=== PATIENT | male | born 1935 | race Caucasian/White ===

== ENCOUNTER → 2017-03-25 | Outpatient (CLI) | payer MEDICARE ==
[~2017-03-25] MED LIST: AMLO10TA PO; AMLO10TA2 PO; ASPI81TA85 PO; ATEN100T PO; ATEN25TA PO; ECOT81TA5 PO; KLON0.5T PO; LATU80TA PO; MAG400TA PO; MV-OCAP PO; PRAV40TA2 PO; PROS5TAB PO; TENO1TAB3 PO; ZOLO100T PO
--- NOTE | 2017-03-25 17:11 | REP ---
DUPLEX CAROTID COMPLETE: REASON: Followup carotid artery disease. COMPARISON: 10/07/2016 which showed total occlusion of the right internal carotid artery. Once again, there is marked echogenic material seen in the carotid arteries, essentially unchanged from the prior exam. Note is again made of right internal carotid arterial occlusion. Some of the echogenic material in the carotid arteries cast an acoustic shadow consistent with calcific deposition. RIGHT: CCA systolic: 60.7 cm/s CCA diastolic: 10.65 cm/s ICA systolic: 0 ICA diastolic: 0 ICA CCA ratio: N/A LEFT: CCA systolic: 99.8 cm/s CCA diastolic: 15.2 cm/s ICA systolic: 119.9 cm/s ICA diastolic: 19.2 cm/s ICA CCA ratio: 1.20 Analysis of the spectral wave forms shows left common and internal carotid arterial spectral broadening with complete filling of the spectral window of the left internal carotid artery. Antegrade flow is seen in both vertebral arteries. IMPRESSION: There is significant soft and calcified plaque formation seen in both carotid arteries as described above. There was a known total occlusion of the right internal carotid artery. According to the NASCET consensus criteria there is less than 50% stenosis of the left internal carotid artery. Signed by Abdullahi Wynn DO 03/26/2017 01:49 P
== END ==
LOC: M RAD 12:51
PROVIDERS: ATTEND Surgery Vascular Surgery
DX: I65.23 Occlusion and stenosis of bilateral carotid arteries (principal)

== ENCOUNTER 2017-11-25 11:01 | Day surgery (SDC) | payer MEDICARE ==
[2017-11-25] MEDS ORDERED: MIDAZOLAM INJ 2 MG/2 ML VIAL (J2250) As Ordered (11:05)
[2017-11-25] MEDS: TROPICAMIDE 1% OPHTH SOLN 2ML OD (11:39)
[2017-11-25] MEDS: PHENYLEPHRINE 2.5% OPHTH SOL 2ML OD (11:39)
[2017-11-25] MEDS: OFLOXACIN 0.3 % (OCUFLOX) OPTH SOL 5ML OD (11:39)
[2017-11-25] MEDS: PROPARACAINE 0.5% OPHTH SOL 15ML OD (11:39)
[2017-11-25] MEDS: POVIDONE-IODINE 5% OPHTH PREP SOL 30ML As Ordered (13:08)
[2017-11-25] MEDS: DUOVISC (0.50ML VISCOAT/0.55ML PROVISC) OPHTH KIT As Ordered (13:09)
[2017-11-25] MEDS: LIDOCAINE 0.75%/EPINEPHRINE 0.025% IN BSS 1ML SYR INTRACAMERAL (OR ONLY) As Ordered (13:09)
[2017-11-25] MEDS: ACETYLCHOLINE OPHTH SOLN 1% 2ML (MIOCHOL-E) As Ordered (13:09)
[2017-11-25] MEDS: BALANCED SALT IRRIGATION SOLUTION 500ML BAG (FOR OR EYE MACHINE) As Ordered (13:09)
[2017-11-25] MEDS: CEFUROXIME 1MG/0.1ML INTRACAMERAL INJ As Ordered (13:10)
== END 2017-11-25 14:22 | disposition home or self-care (01) ==
LOC: M SDC 11:01
DX: H25.11 Age-related nuclear cataract, right eye (principal); I10 Essential (primary) hypertension; F32.9 Major depressive disorder, single episode, unspecified; E78.5 Hyperlipidemia, unspecified; R73.01 Impaired fasting glucose; M19.90 Unspecified osteoarthritis, unspecified site; Z79.899 Other long term (current) drug therapy; Z79.82 Long term (current) use of aspirin; Z87.891 Personal history of nicotine dependence; Z88.7 Allergy status to serum and vaccine
CPT/HCPCS: 66984

== ENCOUNTER 2017-12-16 10:32 | Day surgery (SDC) | payer MEDICARE ==
[2017-12-16] MEDS: LIDOCAINE 0.75%/EPINEPHRINE 0.025% IN BSS 1ML SYR INTRACAMERAL (OR ONLY) As Ordered (06:57)
[2017-12-16] MEDS ORDERED: MIDAZOLAM INJ 2 MG/2 ML VIAL (J2250) As Ordered (13:47)
[2017-12-16] MEDS ORDERED: fentaNYL 100 MCG/2 ML INJECTION (J3010) As Ordered (13:47)
[2017-12-16] MEDS: BALANCED SALT IRRIGATION SOLUTION 500ML BAG (FOR OR EYE MACHINE) As Ordered (14:53)
[2017-12-16] MEDS: ACETYLCHOLINE OPHTH SOLN 1% 2ML (MIOCHOL-E) As Ordered (14:53)
[2017-12-16] MEDS: POVIDONE-IODINE 5% OPHTH PREP SOL 30ML As Ordered (14:53)
[2017-12-16] MEDS: DUOVISC (0.50ML VISCOAT/0.55ML PROVISC) OPHTH KIT As Ordered (14:53)
[2017-12-16] MEDS: CEFUROXIME 1MG/0.1ML INTRACAMERAL INJ As Ordered (14:54)
[2017-12-16] MEDS: LIDOCAINE 1% SDV 5 ML VIAL As Ordered (15:07)
== END 2017-12-16 15:10 | disposition home or self-care (01) ==
LOC: M SDC 10:32
DX: H59.022 Cataract (lens) fragments in eye following cataract surgery, left eye (principal); I10 Essential (primary) hypertension; E78.5 Hyperlipidemia, unspecified; R56.9 Unspecified convulsions; F41.9 Anxiety disorder, unspecified; F32.9 Major depressive disorder, single episode, unspecified; Z79.899 Other long term (current) drug therapy
CPT/HCPCS: 66852

== ENCOUNTER → 2018-04-11 | Outpatient (CLI) | payer MEDICARE | LOC: M RAD 12:54 | DX: I65.23 Occlusion and stenosis of bilateral carotid arteries (principal) | CPT/HCPCS: 93880 ==

== ENCOUNTER → 2018-11-11 | Outpatient (REF) | payer MEDICARE ==
[~2018-11-11] MED LIST changes: -AMLO10TA2 PO; +AMLO10TA5 PO; +ATEN50TA2 PO; +CHLO25TA PO; +K-TA10TA2 PO
== END ==
LOC: M SFHCPLAZ 11:36
PROVIDERS: ATTEND Dermatology
DX: L57.0 Actinic keratosis (principal); D23.5 Other benign neoplasm of skin of trunk; L82.1 Other seborrheic keratosis

== ENCOUNTER 2020-04-15 23:35 | Emergency (ER) | payer MEDICARE ==
[~2020-04-15] VITALS: Ht 172.7 cm; Wt 69.1 kg
--- NOTE | 2020-04-16 00:04 | REPVR ---
PROCEDURE INFORMATION: Exam: CT Head Without Contrast Exam date and time: 04/15/2020 11:41 PM Age: 84 years old Clinical indication: Injury or trauma; Fall; Initial encounter; Concussion / head injury; Consciousness not specified; Additional info: Falls TECHNIQUE: Imaging protocol: Computed tomography of the head without contrast. Radiation optimization: All CT scans at this facility use at least one of these dose optimization techniques: automated exposure control; mA and/or kV adjustment per patient size (includes targeted exams where dose is matched to clinical indication); or iterative reconstruction. COMPARISON: CT Head without contrast 2015-07-19 08:09 FINDINGS: Brain: Diffuse moderate cerebral age related volume loss. Moderate patchy low attenuation in the white matter compatible with moderate chronic small vessel ischemic disease. No midline shift, mass, fluid collection, or evidence of hemorrhage. Ventricles: Ventricular enlargement proportional to volume loss. Bones/joints: Unremarkable. No acute fracture. Sinuses: Visualized sinuses are unremarkable. No fluid levels. Mastoid air cells: Visualized mastoid air cells are well aerated. Soft tissues: Unremarkable. Vasculature: Coarse atherosclerotic calcifications in the vertebral and internal carotid arteries. IMPRESSION: Moderate involutional changes, no acute intracranial abnormality. Electronically signed by: Richard Osuna On 04/16/2020 00:04:29 AM
--- NOTE | 2020-04-16 00:05 | REPVR ---
PROCEDURE INFORMATION: Exam: CT Cervical Spine Without Contrast Exam date and time: 04/15/2020 11:41 PM Age: 84 years old Clinical indication: Neck pain; Additional info: Falls TECHNIQUE: Imaging protocol: Computed tomography images of the cervical spine without contrast. Radiation optimization: All CT scans at this facility use at least one of these dose optimization techniques: automated exposure control; mA and/or kV adjustment per patient size (includes targeted exams where dose is matched to clinical indication); or iterative reconstruction. COMPARISON: SR CT Spine,cervical w/o contrast 2015-07-19 08:09 FINDINGS: Vertebrae: Vertebrae are hypodense bones indicating osteopenia. Normal spinal curvature, vertebral body heights, and alignment. No spinal fracture or acute subluxation. Discs/Spinal canal/Neural foramina: Diffuse degenerative disc space loss with degenerative disc osteophyte complexes, facet arthropathy, and ligamentum flavum thickening causes up to moderate spinal and moderate to severe foraminal stenosis greatest at C4-C6. Soft tissues: Unremarkable. Lungs: Lung apices are normal. Vasculature: There is moderate atherosclerotic calcification of the carotid arteries. IMPRESSION: No acute vertebral fracture/subluxation. Electronically signed by: Richard Osuna On 04/16/2020 00:05:25 AM
[2020-04-16 00:21] LABS: BASO % 0.1 % (0.0-1.0); HEMATOCRIT 29.4 % (42.0-52.0); HEMOGLOBIN 10.5 g/dl (13.5-17.5); LYMPH # 0.6 10^3/uL (1.5-5.0); MEAN CORPUSCULAR HEMOGLOBIN 30.6 pg (27.0-33.0); MEAN CORPUSCULAR HGB CONC 35.7 g/dl (32.0-36.5); MEAN CORPUSCULAR VOLUME 85.7 fl (80.0-96.0); MONO # 1.3 10^3/uL (0.0-0.8); MONO % 6.7 % (0.0-5.0); NEUTROPHILS # 17.8 10^3/uL (1.5-8.5); NEUTROPHILS % 89.4 % (36.0-66.0); PLATELET COUNT, AUTOMATED 175 10^3/uL (150-450); RED BLOOD COUNT 3.43 10^6/uL (4.30-6.10); WHITE BLOOD COUNT 19.9 10^3/uL (4.0-10.0)
--- NOTE | 2020-04-16 00:31 | REPVR ---
PROCEDURE INFORMATION: Exam: CT Thoracic Spine Without Contrast Exam date and time: 04/16/2020 12:11 AM Age: 84 years old Clinical indication: Pain in thoracic spine; Without myelpathy or radiculopathy; Patient HX: Fall; Additional info: Trauma TECHNIQUE: Imaging protocol: Computed tomography images of the thoracic spine without contrast. Radiation optimization: All CT scans at this facility use at least one of these dose optimization techniques: automated exposure control; mA and/or kV adjustment per patient size (includes targeted exams where dose is matched to clinical indication); or iterative reconstruction. COMPARISON: No relevant prior studies available. FINDINGS: Vertebrae: Unstable T10 distraction fracture with transverse oriented fracture through the mid and inferior T10 vertebral body and extending towards the pedicles. Vertebrae are hypodense bones indicating osteopenia. Discs/Spinal canal/Neural foramina: Degenerative disc and joint disease with bulky periarticular osteophytes with at most, mild spinal and mild moderate foraminal stenosis. Soft tissues: Associated paraspinous soft tissue thickening at T10. Heart: Cardiomegaly. Spleen: Splenomegaly. IMPRESSION: Unstable T10 distraction fracture with transverse oriented fracture through the mid and inferior T10 vertebral body and extending towards the pedicles. Associated paraspinous soft tissue thickening at T10. Recommend spine surgical consultation. Electronically signed by: Richard Osuna On 04/16/2020 00:30:27 AM
[2020-04-16 00:32] LABS: INR 1.47; PROTHROMBIN TIME 17.6 SECONDS (11.8-14.0)
[2020-04-16 00:33] LABS: PARTIAL THROMBOPLASTIN TIME 35.3 SECONDS (25.0-38.4)
--- NOTE | 2020-04-16 00:35 | REPVR ---
PROCEDURE INFORMATION: Exam: CT Lumbar Spine Without Contrast Exam date and time: 04/16/2020 12:11 AM Age: 84 years old Clinical indication: Low back pain; Patient HX: Fall; Additional info: Trauma TECHNIQUE: Imaging protocol: Computed tomography images of the lumbar spine without contrast. Radiation optimization: All CT scans at this facility use at least one of these dose optimization techniques: automated exposure control; mA and/or kV adjustment per patient size (includes targeted exams where dose is matched to clinical indication); or iterative reconstruction. COMPARISON: No relevant prior studies available. FINDINGS: Vertebrae: Mild levoconvex lumbar curvature. Maintained vertebral body heights without fractures. Discs/Spinal canal/Neural foramina: Moderate to severe degenerative disc space loss. Scattered disc bulges, osteophytes throughout the cervical spine with up to moderate to severe foraminal and spinal stenosis. Vasculature: Extensive arterial calcifications. Soft tissues: Bulky periarticular osteophytes. IMPRESSION: No acute abnormality. Electronically signed by: Richard Osuna On 04/16/2020 00:35:11 AM
[2020-04-16 00:46] LABS: CALCIUM LEVEL 8.6 MG/DL (8.8-10.2); CREATININE FOR GFR 1.58 MG/DL (0.70-1.30); GLOMERULAR FILTRATION RATE 44.8 (>35); POTASSIUM SERUM 3.2 MEQ/L (3.5-5.1)
[2020-04-16] MEDS ORDERED: NS 1,000 ML IV SCH (00:52)
[2020-04-16 00:59] LABS: ALBUMIN 3.6 GM/DL (3.2-5.2); BILIRUBIN,DIRECT 0.7 MG/DL (0.0-0.2); BILIRUBIN,TOTAL 1.8 MG/DL (0.2-1.0); CK-MB VALUE MASS 15.9 NG/ML (<3.6); MB/CK RELATIVE INDEX 1.16 (< OR =4); THYROID STIMULATING HORMONE 1.45 uIU/ML (0.358-3.740); TROPONIN I 0.17 NG/ML (< 0.10)
[2020-04-16] MEDS ORDERED: POTASSIUM CHLORIDE 10 MEQ SR TABLET PO ONE (01:00)
[2020-04-16] MEDS ORDERED: ALLO100T PO (01:16)
[2020-04-16] MEDS ORDERED: ROSU40TA4 PO (01:16)
[2020-04-16] MEDS ORDERED: LATA0.0015 OP (01:16)
[2020-04-16 02:22] VITALS: BP 170/74
--- NOTE | 2020-04-16 07:50 | REP ---
Portable chest x-ray: Single view. History: Trauma. Comparison chest x-ray: July 25, 2015. Findings: Monitoring electrodes overlie the chest. Moderate cardiomegaly is observed. There is mild pleuroparenchymal scarring in the right base and mild interstitial fibrosis is seen in the left base. No definite infiltrate. Pulmonary vasculature is not increased. No significant bony abnormality. Impression: Moderate cardiomegaly. Bibasilar fibrosis. Otherwise no acute disease. Electronically Signed by Jamarcus Salas MD 04/16/2020 07:41 A
--- NOTE | 2020-04-16 08:07 | ECGEPIP ---
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
== END 2020-04-16 02:27 | disposition home or self-care (01) ==
LOC: EDBD 23:35 → M ED 23:36
DX: S22.019A Unspecified fracture of first thoracic vertebra, initial encounter for closed fracture (principal); I48.91 Unspecified atrial fibrillation; E87.1 Hypo-osmolality and hyponatremia; M62.82 Rhabdomyolysis; E87.6 Hypokalemia; I10 Essential (primary) hypertension; E78.49 Other hyperlipidemia; Z87.891 Personal history of nicotine dependence; Z91.81 History of falling; Y92.89 Other specified places as the place of occurrence of the external cause; Y93.9 Activity, unspecified; Y99.9 Unspecified external cause status

== ENCOUNTER → 2020-04-25 | Outpatient (REF) ==
[~2020-04-25] MED LIST changes: +ALLO100T PO; +LATA0.0015 OP; +ROSU40TA4 PO
[2020-04-25 10:56] LABS: BLOOD UREA NITROGEN 17 MG/DL (7-18); CALCIUM LEVEL 8.4 MG/DL (8.8-10.2); CARBON DIOXIDE LEVEL 27 MEQ/L (21-32); CHLORIDE LEVEL 103 MEQ/L (98-107); GLOMERULAR FILTRATION RATE > 60.0 (>35); GLUCOSE, FASTING 88 MG/DL (70-100); POTASSIUM SERUM 3.4 MEQ/L (3.5-5.1); SODIUM LEVEL 138 MEQ/L (136-145)
== END ==
PROVIDERS: ATTEND Internal Medicine
DX: E87.1 Hypo-osmolality and hyponatremia (principal)

== ENCOUNTER → 2020-04-29 | Outpatient (REF) ==
[2020-04-29 10:29] LABS: CALCIUM LEVEL 8.8 MG/DL (8.8-10.2); CREATININE FOR GFR 1.37 MG/DL (0.70-1.30); GLOMERULAR FILTRATION RATE 52.8 (>35); POTASSIUM SERUM 3.9 MEQ/L (3.5-5.1)
== END ==
PROVIDERS: ATTEND Internal Medicine
DX: I51.9 Heart disease, unspecified (principal)

== ENCOUNTER → 2020-05-02 | Outpatient (REF) ==
[2020-05-02 09:27] LABS: HEMATOCRIT 35.9 % (42.0-52.0); HEMOGLOBIN 11.5 g/dl (13.5-17.5); MEAN CORPUSCULAR HEMOGLOBIN 29.9 pg (27.0-33.0); MEAN CORPUSCULAR VOLUME 93.2 fl (80.0-96.0); PLATELET COUNT, AUTOMATED 274 10^3/uL (150-450); RED BLOOD COUNT 3.85 10^6/uL (4.30-6.10); WHITE BLOOD COUNT 6.8 10^3/uL (4.0-10.0)
[2020-05-02 09:52] LABS: CALCIUM LEVEL 8.9 MG/DL (8.8-10.2); CREATININE FOR GFR 1.53 MG/DL (0.70-1.30); GLOMERULAR FILTRATION RATE 46.5 (>35); POTASSIUM SERUM 3.5 MEQ/L (3.5-5.1)
--- NOTE | 2020-05-02 16:20 | REP ---
Three views thoracic spine: 05/02/2020. Indication: T10 fracture. Comparison: 04/16/2020. Findings: The T10 fracture is better visualized on the recent CT evaluation. There has been moderate increased compression of the fracture T10 vertebral body. No new fractures are detected. Diffuse osteopenia and extensive multilevel degenerative sequelae are again noted. Impression: Increase compression of the previously described fracture T10 vertebral body. No retropulsion of fracture fragments into the spinal canal detected. Electronically Signed by Tramaine Aguilera DO 05/02/2020 04:11 P
== END ==
PROVIDERS: ATTEND Internal Medicine
DX: E87.1 Hypo-osmolality and hyponatremia (principal); I10 Essential (primary) hypertension

== ENCOUNTER → 2020-05-06 | Outpatient (REF) ==
[2020-05-06 13:47] LABS: CALCIUM LEVEL 8.9 MG/DL (8.8-10.2); CREATININE FOR GFR 1.65 MG/DL (0.70-1.30); GLOMERULAR FILTRATION RATE 42.6 (>35); POTASSIUM SERUM 4.1 MEQ/L (3.5-5.1)
[2020-05-06 13:54] LABS: HEMATOCRIT 36.5 % (42.0-52.0); HEMOGLOBIN 11.7 g/dl (13.5-17.5); MEAN CORPUSCULAR HEMOGLOBIN 30.5 pg (27.0-33.0); MEAN CORPUSCULAR HGB CONC 32.1 g/dl (32.0-36.5); MEAN CORPUSCULAR VOLUME 95.3 fl (80.0-96.0); PLATELET COUNT, AUTOMATED 301 10^3/uL (150-450); RED BLOOD COUNT 3.83 10^6/uL (4.30-6.10); WHITE BLOOD COUNT 16.1 10^3/uL (4.0-10.0)
== END ==
PROVIDERS: ATTEND Physician Assistant
DX: R41.82 Altered mental status, unspecified (principal)

== ENCOUNTER → 2020-05-06 | Outpatient (REF) ==
[2020-05-06 14:18] LABS: CREATININE FOR GFR 1.59 MG/DL (0.70-1.30); GLOMERULAR FILTRATION RATE 44.5 (>35); POTASSIUM SERUM 3.5 MEQ/L (3.5-5.1)
== END ==
PROVIDERS: ATTEND Physician Assistant
DX: Z79.899 Other long term (current) drug therapy (principal)

== ENCOUNTER → 2020-05-06 | Outpatient (REF) | payer MEDICARE ==
[~2020-05-06] MED LIST changes: -AMLO10TA5 PO; +AMLO1TAB25 PO; -ASPI81TA85 PO; +ASPI81TA86 PO
--- NOTE | 2020-05-06 16:41 | REPPI ---
CHEST X-RAY: AP VIEW. HISTORY: Altered mental status. COMPARISON CHEST X-RAY: April 16, 2020 FINDINGS: Cardiomegaly is again observed, unchanged. No infiltrate is seen. Pleural angles are sharp. Thoracic aorta is calcific. A no acute bony abnormality. IMPRESSION: Cardiomegaly, unchanged. No acute infiltrate seen. Electronically Signed by Jamarcus Salas MD 05/06/2020 06:17 P
[2020-05-06 18:51] LABS: AMORPHOUS SEDIMENT SMALL (NEGATIVE); APPEARANCE, URINE TURBID (CLEAR); BACTERIA, URINE AUTO 2+ (NEGATIVE); BILIRUBIN, URINE AUTO NEGATIVE (NEGATIVE); BLOOD, URINE BLOOD 2+ (NEGATIVE); COLOR, URINE YELLOW (YELLOW); GLUCOSE, URINE (UA) AUTO NEGATIVE (NEGATIVE); KETONE, URINE AUTO NEGATIVE (NEGATIVE); LEUKOCYTE ESTERASE, URINE AUTO 3+ (NEGATIVE); MUCUS, URINE SMALL (NEGATIVE); NITRITE, URINE AUTO NEGATIVE (NEGATIVE); PROTEIN, URINE AUTO 2+ mg/dL (NEGATIVE); RBC, URINE AUTO 71 /HPF (0-3); SPECIFIC GRAVITY URINE AUTO 1.016 (1.002-1.035); SQUAMOUS EPITHELIAL CELL UR AU 0 /HPF (0-6); TRANSITIONAL EPITHELIAL AUTO 4 /HPF; UROBILINOGEN, URINE AUTO 0.2 mg/dL (0.0-2.0); WBC, URINE AUTO TNTC /HPF (0-3)
== END ==
PROVIDERS: ATTEND Internal Medicine
DX: I51.7 Cardiomegaly (principal); R41.82 Altered mental status, unspecified

== ENCOUNTER → 2020-05-07 | Outpatient (REF) ==
[~2020-05-07] MED LIST changes: +AMLO10TA5 PO; -AMLO1TAB25 PO; +ASPI81TA85 PO; -ASPI81TA86 PO
== END ==
PROVIDERS: ATTEND Internal Medicine
DX: N17.9 Acute kidney failure, unspecified (principal)

== ENCOUNTER → 2020-05-07 | Outpatient (REF) ==
[2020-05-07 07:30] LABS: HEMATOCRIT 33.2 % (42.0-52.0); HEMOGLOBIN 10.8 g/dl (13.5-17.5); MEAN CORPUSCULAR HEMOGLOBIN 30.5 pg (27.0-33.0); MEAN CORPUSCULAR HGB CONC 32.5 g/dl (32.0-36.5); MEAN CORPUSCULAR VOLUME 93.8 fl (80.0-96.0); PLATELET COUNT, AUTOMATED 247 10^3/uL (150-450); RED BLOOD COUNT 3.54 10^6/uL (4.30-6.10); WHITE BLOOD COUNT 21.7 10^3/uL (4.0-10.0)
[2020-05-07 07:57] LABS: CALCIUM LEVEL 8.6 MG/DL (8.8-10.2); CREATININE FOR GFR 1.69 MG/DL (0.70-1.30); GLOMERULAR FILTRATION RATE 41.5 (>35); POTASSIUM SERUM 3.5 MEQ/L (3.5-5.1)
== END ==
PROVIDERS: ATTEND Internal Medicine
DX: R41.82 Altered mental status, unspecified (principal)

== ENCOUNTER 2020-05-08 15:35 | Emergency (ER) | payer MEDICARE ==
[~2020-05-08] VITALS: Ht 167.6 cm; Wt 66.4 kg
[~2020-05-08 15:35] MED LIST changes: -AMLO10TA5 PO; +AMLO1TAB25 PO; -ASPI81TA85 PO; +ASPI81TA86 PO
[2020-05-08 18:35] LABS: BASO % 0.1 % (0.0-1.0); EOS % 0.2 % (0.0-3.0); HEMATOCRIT 31.3 % (42.0-52.0); HEMOGLOBIN 10.3 g/dl (13.5-17.5); LYMPH % 10.7 % (24.0-44.0); MEAN CORPUSCULAR HEMOGLOBIN 31.1 pg (27.0-33.0); MEAN CORPUSCULAR HGB CONC 32.9 g/dl (32.0-36.5); MEAN CORPUSCULAR VOLUME 94.6 fl (80.0-96.0); MONO # 0.9 10^3/uL (0.0-0.8); MONO % 4.8 % (0.0-5.0); NEUTROPHILS # 15.3 10^3/uL (1.5-8.5); NEUTROPHILS % 83.7 % (36.0-66.0); PLATELET COUNT, AUTOMATED 241 10^3/uL (150-450); RED BLOOD COUNT 3.31 10^6/uL (4.30-6.10); WHITE BLOOD COUNT 18.2 10^3/uL (4.0-10.0)
[2020-05-08 18:48] LABS: INR 1.5; PROTHROMBIN TIME 17.8 SECONDS (11.8-14.0)
[2020-05-08 18:49] LABS: PARTIAL THROMBOPLASTIN TIME 32.6 SECONDS (25.0-38.4)
[2020-05-08 19:04] LABS: ALBUMIN 2.4 GM/DL (3.2-5.2); BILIRUBIN,DIRECT 0.2 MG/DL (0.0-0.2); BILIRUBIN,TOTAL 0.3 MG/DL (0.2-1.0); C REACTIVE PROTEIN QUANTITATIV 14.4 MG/DL (0.00-0.30); THYROID STIMULATING HORMONE 0.295 uIU/ML (0.358-3.740); TOTAL PROTEIN 6.3 GM/DL (6.4-8.2)
[2020-05-08 19:16] LABS: ERYTHROCYTE SEDIMENTATION RATE 82 mm/hr (0-20)
--- NOTE | 2020-05-08 21:38 | REPVR ---
PROCEDURE INFORMATION: Exam: MR Thoracic Spine Without Contrast Exam date and time: 05/08/2020 5:23 PM Age: 84 years old Clinical indication: Abnormal findings; Abnormal radiologic findings of thoracic; Additional info: T-10 fracture, loss of rectal tone, increased spasticity TECHNIQUE: Imaging protocol: Multiplanar magnetic resonance images of the thoracic spine without intravenous contrast. COMPARISON: CT Spine,thoracic w/o contrast 04/16/2020 12:13 AM FINDINGS: There is a linear fracture oriented in anterior to posterior direction through the T10 vertebral body. There is approximately 50% loss of vertebral body height which is new since the previous thoracic spine CT. There is also a new anterior compression fracture of the T11 vertebral body. Associated bone marrow edema at T9, T10, and T11. There is retropulsion of disc material at T9-10 and possibly the T10 posterior vertebral body wall causing severe central spinal canal stenosis. The central spinal canal measures 6 mm in AP diameter. Associated compression of the thoracic spinal cord with abnormal signal at the T10 level. Signal in the remainder of the cord is normal. No syrinx or mass. Milder discogenic degenerative changes elsewhere in the thoracic spine. Small posterior disc osteophyte complex at C6-C7 causes mild spinal stenosis without cord compression. Similar degenerative changes in the upper lumbar spine. Paraspinal soft tissue edema centered at the T10 level. IMPRESSION: 1. Compression fracture of T10 with loss of vertebral body height and retropulsion of disc material and or bone fragment causing severe spinal stenosis with cord compression and mild cord edema. 2. New anterior compression fracture of T11 Electronically signed by: Rubio Minor On 05/08/2020 21:37:31 PM
--- NOTE | 2020-05-08 21:58 | REPVR ---
PROCEDURE INFORMATION: Exam: MR Lumbar Spine Without Contrast. Exam date and time: 05/08/2020 5:23 PM Age: 84 years old Clinical indication: Abnormal findings; Abnormal xray or scan of thoracolumbar spine; Additional info: T-10 fracture, loss of rectal tone, increased spasticity TECHNIQUE: Imaging protocol: Multiplanar magnetic resonance images of the lumbar spine without intravenous contrast. COMPARISON: CT Spine, lumbar w/o contrast 04/16/2020 12:13 AM FINDINGS: Vertebrae: Normal vertebral body alignment. No compression fracture is seen. There is bone marrow edema in the L1 and L2 vertebrae and multilevel endplate degenerative changes. Advanced facet degenerative changes and degenerative changes in the interspinous ligaments throughout the lumbar spine. Spinal cord: Normal signal. No cord compression. L1-L2: Severe disc degeneration with loss of disc height. Disc space is partially replaced by fluid. Endplate degenerative changes and reactive bone marrow edema. Posterior disc bulge causes lateral recess stenosis on the left. Severe bilateral foraminal stenosis. L2-L3: Severe disc degeneration with loss of disc height and small posterior disc bulge. No disc herniation or spinal stenosis. Advanced facet DJD with severe bilateral foraminal stenosis. L3-L4: Severe disc degeneration with loss of disc height and small posterior disc bulge. Some fluid signal in the intervertebral disc space Mild lateral recess stenosis on the left. No disc herniation or spinal stenosis. Advanced facet DJD with severe bilateral foraminal stenosis. L4-L5: Disc degeneration with loss of disc height. Small annulus tear with midline posterior disc protrusion measuring 9 x 3 mm. Lateral recess stenosis on the left with some mass effect on the L5 nerve root. Advanced facet DJD with severe foraminal stenosis. L5-S1: Severe disc degeneration with loss of disc height. No disc herniation or spinal stenosis. Advanced facet DJD with severe foraminal stenoses. Soft tissues: Unremarkable. IMPRESSION: 1. Advanced degenerative spondylosis as above with severe foraminal stenoses and advanced facet DJD throughout the lumbar spine. 2. Small posterior disc bulges at multiple levels causing lateral recess stenoses on the left. No spinal stenosis. 3. Non-specific fluid signal in the L1-L2 and L3-L4 intervertebral disc spaces. Consider follow-up contrast-enhanced MRI if there is concern for infection. Electronically signed by: Rubio Minor On 05/08/2020 21:57:53 PM
[2020-05-09 01:51] VITALS: BP 153/70
== END 2020-05-09 01:54 | disposition short-term general hospital (02) ==
LOC: M ED 15:35 → EDBD 15:35 → M ED 05-09 01:54
DX: G95.19 Other vascular myelopathies (principal); G95.20 Unspecified cord compression; I10 Essential (primary) hypertension; E78.5 Hyperlipidemia, unspecified; M10.9 Gout, unspecified; Z79.899 Other long term (current) drug therapy; Z79.82 Long term (current) use of aspirin; Z88.7 Allergy status to serum and vaccine

== ENCOUNTER → 2020-05-08 | Outpatient (REF) ==
[2020-05-08 11:55] LABS: HEMOGLOBIN 11.4 g/dl (13.5-17.5); MEAN CORPUSCULAR HEMOGLOBIN 30.6 pg (27.0-33.0); MEAN CORPUSCULAR HGB CONC 31.7 g/dl (32.0-36.5); MEAN CORPUSCULAR VOLUME 96.5 fl (80.0-96.0); PLATELET COUNT, AUTOMATED 326 10^3/uL (150-450); RED BLOOD COUNT 3.73 10^6/uL (4.30-6.10); WHITE BLOOD COUNT 19.4 10^3/uL (4.0-10.0)
[2020-05-08 12:20] LABS: CALCIUM LEVEL 8.2 MG/DL (8.8-10.2); CREATININE FOR GFR 1.81 MG/DL (0.70-1.30); GLOMERULAR FILTRATION RATE 38.3 (>35); POTASSIUM SERUM 3.7 MEQ/L (3.5-5.1)
== END ==
PROVIDERS: ATTEND Internal Medicine
DX: N39.0 Urinary tract infection, site not specified (principal); N17.9 Acute kidney failure, unspecified

== ENCOUNTER → 2020-05-21 | Outpatient (REF) ==
[~2020-05-21] MED LIST changes: +AMLO10TA5 PO; -AMLO1TAB25 PO; +ASPI81TA85 PO; -ASPI81TA86 PO
[2020-05-21 10:40] LABS: HEMATOCRIT 31.3 % (42.0-52.0); HEMOGLOBIN 9.8 g/dl (13.5-17.5); MEAN CORPUSCULAR HEMOGLOBIN 29.9 pg (27.0-33.0); MEAN CORPUSCULAR HGB CONC 31.3 g/dl (32.0-36.5); MEAN CORPUSCULAR VOLUME 95.4 fl (80.0-96.0); PLATELET COUNT, AUTOMATED 204 10^3/uL (150-450); RED BLOOD COUNT 3.28 10^6/uL (4.30-6.10); WHITE BLOOD COUNT 8.4 10^3/uL (4.0-10.0)
[2020-05-21 11:09] LABS: CALCIUM LEVEL 8.8 MG/DL (8.8-10.2); CREATININE FOR GFR 1.51 MG/DL (0.70-1.30); GLOMERULAR FILTRATION RATE 47.2 (>35); POTASSIUM SERUM 4.2 MEQ/L (3.5-5.1)
== END ==
PROVIDERS: ATTEND Internal Medicine
DX: I10 Essential (primary) hypertension (principal)

== ENCOUNTER → 2020-05-28 | Outpatient (REF) ==
[~2020-05-28] MED LIST changes: -AMLO10TA5 PO; +AMLO1TAB25 PO; -ASPI81TA85 PO; +ASPI81TA86 PO
[2020-05-28 12:53] LABS: HEMATOCRIT 32.2 % (42.0-52.0); HEMOGLOBIN 9.8 g/dl (13.5-17.5); MEAN CORPUSCULAR HEMOGLOBIN 29.9 pg (27.0-33.0); MEAN CORPUSCULAR HGB CONC 30.4 g/dl (32.0-36.5); MEAN CORPUSCULAR VOLUME 98.2 fl (80.0-96.0); PLATELET COUNT, AUTOMATED 269 10^3/uL (150-450); RED BLOOD COUNT 3.28 10^6/uL (4.30-6.10); WHITE BLOOD COUNT 7.1 10^3/uL (4.0-10.0)
[2020-05-28 16:37] LABS: CREATININE FOR GFR 1.75 MG/DL (0.70-1.30); GLOMERULAR FILTRATION RATE 39.8 (>35); POTASSIUM SERUM 4.6 MEQ/L (3.5-5.1)
== END ==
PROVIDERS: ATTEND Internal Medicine
DX: Z79.899 Other long term (current) drug therapy (principal)

== ENCOUNTER → 2020-06-03 | Outpatient (REF) ==
[~2020-06-03] MED LIST changes: +AMLO10TA5 PO; -AMLO1TAB25 PO; +ASPI81TA85 PO; -ASPI81TA86 PO
--- NOTE | 2020-06-03 12:06 | REP ---
REASON: Followup postop. COMPARISON: Preop 05/02/2020. Since the last examination, transpedicular screws and internal fixation rods have been placed affecting T8 to L1 with bilateral transpedicular screws at T8, T9, T12 and L1 and internally fixing rods bilaterally and contiguously throughout those levels. Vertebral body height and alignment is unchanged. None of the affixing screws breech any other corresponding endplates or anterior vertebral body cortices. The degree of disc space narrowing is also unchanged. IMPRESSION: Chronic and postoperative changes as described above. Electronically Signed by Abdullahi Wynn DO 06/03/2020 02:27 P
== END ==
PROVIDERS: ATTEND Internal Medicine
DX: Z98.890 Other specified postprocedural states (principal)

== ENCOUNTER → 2020-06-11 | Outpatient (REF) ==
--- NOTE | 2020-06-11 14:21 | REP ---
Clinical: Paresthesia and pain. Technique: AP and lateral views of the left tibia / fibula. Findings: Evidence of prior left knee replacement. Peripheral vascular disease noted. Skeletal structures demonstrate age-related degenerative changes. No acute fracture or dislocation. No subcutaneous emphysema or significant foreign body. Impression: Nonacute findings as above. Electronically Signed by Mohan Pate MD 06/11/2020 02:13 P
--- NOTE | 2020-06-11 14:38 | REP ---
Clinical: Pain. Technique: AP, lateral, bilateral oblique views of the left knee. Findings: Evidence for prior knee replacement. Underlying age-related degenerative changes noted. Peripheral vascular disease identified. No obvious acute fracture or dislocation. Impression: No acute fracture dislocation appreciated. Electronically Signed by Mohan Pate MD 06/11/2020 02:29 P
== END ==
PROVIDERS: ATTEND Internal Medicine
DX: Z96.652 Presence of left artificial knee joint (principal)

== ENCOUNTER → 2020-06-11 | Outpatient (CLI) | payer MEDICARE ==
[~2020-06-11] MED LIST changes: -AMLO10TA5 PO; +AMLO1TAB25 PO; -ASPI81TA85 PO; +ASPI81TA86 PO
== END ==
LOC: M RAD 13:46
PROVIDERS: ATTEND Physician Assistant
DX: M25.562 Pain in left knee (principal); I70.292 Other atherosclerosis of native arteries of extremities, left leg; Z96.652 Presence of left artificial knee joint

== ENCOUNTER → 2020-06-28 | Outpatient (REF) | payer MEDICARE ==
[2020-09-15 06:41] LABS: HEMATOCRIT 28.7 % (42.0-52.0); HEMOGLOBIN 9.1 g/dl (13.5-17.5); MEAN CORPUSCULAR HGB CONC 31.7 g/dl (32.0-36.5); MEAN CORPUSCULAR VOLUME 97.6 fl (80.0-96.0); PLATELET COUNT, AUTOMATED 246 10^3/uL (150-450); RED BLOOD COUNT 2.94 10^6/uL (4.30-6.10); WHITE BLOOD COUNT 7.1 10^3/uL (4.0-10.0)
[2020-09-26 13:53] LABS: ALBUMIN 2.6 GM/DL (3.2-5.2); BILIRUBIN,TOTAL 0.3 MG/DL (0.2-1.0); CALCIUM LEVEL 8.3 MG/DL (8.8-10.2); CREATININE FOR GFR 1.31 MG/DL (0.70-1.30); GLOMERULAR FILTRATION RATE 55.5 (>35); POTASSIUM SERUM 4.2 MEQ/L (3.5-5.1); TOTAL PROTEIN 6.2 GM/DL (6.4-8.2)
== END ==
PROVIDERS: ATTEND Internal Medicine
DX: N18.9 Chronic kidney disease, unspecified (principal)

== ENCOUNTER → 2020-08-07 | Outpatient (REF) ==
[2020-08-07 10:46] LABS: HEMATOCRIT 28.5 % (42.0-52.0); HEMOGLOBIN 9.1 g/dl (13.5-17.5); MEAN CORPUSCULAR HGB CONC 31.9 g/dl (32.0-36.5); MEAN CORPUSCULAR VOLUME 96.9 fl (80.0-96.0); PLATELET COUNT, AUTOMATED 179 10^3/uL (150-450); RED BLOOD COUNT 2.94 10^6/uL (4.30-6.10)
[2020-08-07 11:17] LABS: ALBUMIN 2.8 GM/DL (3.2-5.2); BILIRUBIN,TOTAL 0.4 MG/DL (0.2-1.0); CALCIUM LEVEL 8.8 MG/DL (8.8-10.2); CREATININE FOR GFR 1.33 MG/DL (0.70-1.30); GLOMERULAR FILTRATION RATE 54.7 (>35); POTASSIUM SERUM 4.2 MEQ/L (3.5-5.1); TOTAL PROTEIN 6.5 GM/DL (6.4-8.2)
== END ==
PROVIDERS: ATTEND Internal Medicine
DX: E87.1 Hypo-osmolality and hyponatremia (principal)

== ENCOUNTER → 2020-08-09 | Outpatient (REF) ==
[2020-08-09 11:05] LABS: HEMOGLOBIN 9.5 g/dl (13.5-17.5); MEAN CORPUSCULAR HEMOGLOBIN 31.4 pg (27.0-33.0); MEAN CORPUSCULAR HGB CONC 31.7 g/dl (32.0-36.5); PLATELET COUNT, AUTOMATED 192 10^3/uL (150-450); RED BLOOD COUNT 3.03 10^6/uL (4.30-6.10)
[2020-08-09 11:45] LABS: CALCIUM LEVEL 8.8 MG/DL (8.8-10.2); CREATININE FOR GFR 1.62 MG/DL (0.70-1.30); GLOMERULAR FILTRATION RATE 43.5 (>35); POTASSIUM SERUM 4.1 MEQ/L (3.5-5.1); THYROID STIMULATING HORMONE 0.601 uIU/ML (0.358-3.740)
== END ==
PROVIDERS: ATTEND Internal Medicine
DX: R53.83 Other fatigue (principal)

== ENCOUNTER → 2020-08-12 | Outpatient (CLI) | payer MEDICARE ==
--- NOTE | 2020-08-21 11:51 | REP ---
PELVIC ULTRASOUND HISTORY: Acute renal injury. TECHNIQUE: Real-time sonographic evaluation of the urinary bladder is performed. FINDINGS: Bladder measures 7.6 x 9.2 x 6.2 cm for a total volume of 283 mL. There is a Pitt catheter in place; however, the balloon is not visualized within the bladder lumen and may be inflated within the prostate. Ureteral jets are not visualized with Doppler color evaluation in the urinary bladder. Prostate measures 4.3 x 4.4 x 5.2 cm for a total volume of 51 mL. No intraluminal polyp or calculus is seen. There is no abnormal echogenicity within the bladder lumen. IMPRESSION: Bladder mildly distended with no intraluminal abnormality. The patient has a Pitt catheter, but the balloon of the catheter is not visualized within the bladder lumen and may be inflated within the prostate. MTDD
--- NOTE | 2020-08-21 11:52 | REP ---
HISTORY: Acute renal injury. TECHNIQUE: Real-time sonographic evaluation of the kidneys is performed. FINDINGS: Kidneys are normal in size and echotexture. Right kidney measures 9.2 x 4.4 x 4.0 cm and left kidney 9.0 x 5.0 x 5.5 cm. There is no hydronephrosis bilaterally. Probable cyst is noted of the upper pole of the right kidney 1.5 cm maximally. Probable cyst of the lower pole of the left kidney measures 1.8 cm maximally. IMPRESSION: Probable cyst of each kidney as discussed above. No hydronephrosis or perinephric fluid. MTDD
== END ==
LOC: M RAD 09:33
PROVIDERS: ATTEND Physician Assistant
DX: R53.83 Other fatigue (principal)

== ENCOUNTER → 2020-08-12 | Outpatient (REF) ==
[2020-08-12 10:12] LABS: HEMATOCRIT 29.9 % (42.0-52.0); HEMOGLOBIN 9.3 g/dl (13.5-17.5); MEAN CORPUSCULAR HEMOGLOBIN 30.9 pg (27.0-33.0); MEAN CORPUSCULAR HGB CONC 31.1 g/dl (32.0-36.5); MEAN CORPUSCULAR VOLUME 99.3 fl (80.0-96.0); PLATELET COUNT, AUTOMATED 196 10^3/uL (150-450); RED BLOOD COUNT 3.01 10^6/uL (4.30-6.10); WHITE BLOOD COUNT 6.6 10^3/uL (4.0-10.0)
[2020-08-12 10:38] LABS: CALCIUM LEVEL 8.7 MG/DL (8.8-10.2); CREATININE FOR GFR 1.56 MG/DL (0.70-1.30); GLOMERULAR FILTRATION RATE 45.5 (>35); POTASSIUM SERUM 4.4 MEQ/L (3.5-5.1)
== END ==
PROVIDERS: ATTEND Internal Medicine
DX: E87.1 Hypo-osmolality and hyponatremia (principal)

== ENCOUNTER → 2020-08-14 | Outpatient (REF) | payer MEDICARE ==
[2020-08-14 12:27] LABS: CALCIUM LEVEL 9.1 MG/DL (8.8-10.2); CREATININE FOR GFR 1.36 MG/DL (0.70-1.30); GLOMERULAR FILTRATION RATE 53.3 (>35); POTASSIUM SERUM 4.3 MEQ/L (3.5-5.1)
== END ==
PROVIDERS: ATTEND Internal Medicine
DX: N18.9 Chronic kidney disease, unspecified (principal)

== ENCOUNTER → 2020-08-16 | Outpatient (REF) ==
[2020-08-16 13:11] LABS: HEMOGLOBIN 8.8 g/dl (13.5-17.5); MEAN CORPUSCULAR HGB CONC 31.4 g/dl (32.0-36.5); MEAN CORPUSCULAR VOLUME 98.6 fl (80.0-96.0); PLATELET COUNT, AUTOMATED 198 10^3/uL (150-450); RED BLOOD COUNT 2.84 10^6/uL (4.30-6.10); WHITE BLOOD COUNT 5.5 10^3/uL (4.0-10.0)
[2020-08-16 13:30] LABS: CALCIUM LEVEL 8.6 MG/DL (8.8-10.2); CREATININE FOR GFR 1.43 MG/DL (0.70-1.30); GLOMERULAR FILTRATION RATE 50.3 (>35); POTASSIUM SERUM 4.4 MEQ/L (3.5-5.1)
== END ==
PROVIDERS: ATTEND Internal Medicine
DX: N18.9 Chronic kidney disease, unspecified (principal)

== ENCOUNTER → 2020-08-28 | Outpatient (REF) ==
[2020-08-28 11:12] LABS: HEMATOCRIT 31.3 % (42.0-52.0); HEMOGLOBIN 9.7 g/dl (13.5-17.5); MEAN CORPUSCULAR HEMOGLOBIN 30.6 pg (27.0-33.0); MEAN CORPUSCULAR VOLUME 98.7 fl (80.0-96.0); PLATELET COUNT, AUTOMATED 191 10^3/uL (150-450); RED BLOOD COUNT 3.17 10^6/uL (4.30-6.10); WHITE BLOOD COUNT 5.9 10^3/uL (4.0-10.0)
== END ==
PROVIDERS: ATTEND Internal Medicine
DX: N18.9 Chronic kidney disease, unspecified (principal)

== ENCOUNTER → 2020-09-11 | Outpatient (REF) | payer MEDICARE ==
[2020-09-11 10:01] LABS: HEMATOCRIT 30.1 % (42.0-52.0); HEMOGLOBIN 9.4 g/dl (13.5-17.5); MEAN CORPUSCULAR HEMOGLOBIN 30.9 pg (27.0-33.0); MEAN CORPUSCULAR HGB CONC 31.2 g/dl (32.0-36.5); PLATELET COUNT, AUTOMATED 164 10^3/uL (150-450); RED BLOOD COUNT 3.04 10^6/uL (4.30-6.10); WHITE BLOOD COUNT 5.8 10^3/uL (4.0-10.0)
[2020-09-11 10:24] LABS: CALCIUM LEVEL 8.8 MG/DL (8.8-10.2); CREATININE FOR GFR 1.35 MG/DL (0.70-1.30); GLOMERULAR FILTRATION RATE 53.7 (>35); POTASSIUM SERUM 4.3 MEQ/L (3.5-5.1)
== END ==
PROVIDERS: ATTEND Internal Medicine
DX: I10 Essential (primary) hypertension (principal)

== ENCOUNTER → 2020-09-17 | Outpatient (CLI) | payer MEDICARE | LOC: M RAD 12:27 | PROVIDERS: ATTEND Internal Medicine | DX: M51.36 Other intervertebral disc degeneration, lumbar region (principal); Z98.1 Arthrodesis status ==

== ENCOUNTER → 2020-09-17 | Outpatient (REF) ==
--- NOTE | 2020-09-17 15:09 | REP ---
INDICATION: THORATIC SURGERY. COMPARISON: Comparison thoracic spine radiographs June 03, 2020.. TECHNIQUE: Three views. FINDINGS: Renteria rods are seen transfixed by bilateral transpedicle screws at T8, T9, T12, and L1. These are unchanged in position and appearance. 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 There is degenerative disc disease at T6-7 with anterior osteophyte formation as well as at T4-5. Thoracic vertebral body heights are preserved. No paravertebral soft tissue mass is seen. There is advanced degenerative disc disease at L1. Prominent spurring is seen at the L1-2 level. Swimmer's lateral view shows degenerative spondylosis change in the lower cervical spine. No bony destructive lesion is seen. The thoracic aorta is calcific. IMPRESSION: Posterior element fusion T8 through L1 with bilateral dorsal rods. Degenerative disc changes as noted above most pronounced at L1-L2. No acute bony abnormality. <Electronically signed by Rickey Salas > 09/17/20 [id number]
--- NOTE | 2020-09-17 16:50 | REP ---
INDICATION: THORACIC SURGERY. COMPARISON: No comparison radiographs. Comparison CT study lumbar spine April 16, 2020.. TECHNIQUE: Six views. FINDINGS: Transpedicle screws are noted bilaterally with interconnecting rods from above at the T12 and L1 levels. There is advanced degenerative disc disease with large anterior and bilateral spurs at L1-L2. There is diffuse degenerative disc disease throughout the remainder of the lumbar disc levels with space narrowing and anterior and posterior osteophyte formation. Lumbar vertebral body heights are preserved. Alignment is normal. There is vascular calcification extensively and a nonaneurysmal abdominal aorta. No bony destructive lesion is seen. Sacrum and SI joints appear intact. Psoas margins are symmetric. IMPRESSION: Advanced diffuse degenerative disc disease most pronounced below the fusion rods at the L1-2 level. No acute bony abnormality. <Electronically signed by Rickey Salas > 09/17/20 [id number]
== END ==
PROVIDERS: ATTEND Internal Medicine
DX: M51.36 Other intervertebral disc degeneration, lumbar region (principal); Z98.1 Arthrodesis status

== ENCOUNTER → 2020-10-03 | Outpatient (REF) | PROVIDERS: ATTEND Internal Medicine | DX: Z20.828 Contact with and (suspected) exposure to other viral communicable diseases (principal) ==

== ENCOUNTER → 2020-10-08 | Outpatient (REF) | payer MEDICARE ==
[2020-10-08 12:04] LABS: HEMOGLOBIN 9.4 g/dl (13.5-17.5); MEAN CORPUSCULAR HEMOGLOBIN 30.9 pg (27.0-33.0); MEAN CORPUSCULAR HGB CONC 31.3 g/dl (32.0-36.5); MEAN CORPUSCULAR VOLUME 98.7 fl (80.0-96.0); PLATELET COUNT, AUTOMATED 126 10^3/uL (150-450); RED BLOOD COUNT 3.04 10^6/uL (4.30-6.10); WHITE BLOOD COUNT 5.6 10^3/uL (4.0-10.0)
[2020-10-08 12:48] LABS: CALCIUM LEVEL 8.8 MG/DL (8.8-10.2); CREATININE FOR GFR 1.47 MG/DL (0.70-1.30); GLOMERULAR FILTRATION RATE 48.6 (>35); POTASSIUM SERUM 4.2 MEQ/L (3.5-5.1)
== END ==
PROVIDERS: ATTEND Internal Medicine
DX: N18.9 Chronic kidney disease, unspecified (principal)

== ENCOUNTER → 2020-10-10 | Outpatient (REF) | payer MEDICARE ==
[~2020-10-10] MED LIST changes: -MAG400TA PO; +MAGN400T35 PO
== END ==
LOC: EDSTATUS 11-19 13:42
PROVIDERS: ATTEND Internal Medicine
DX: Z20.828 Contact with and (suspected) exposure to other viral communicable diseases (principal)

== ENCOUNTER → 2020-10-14 | Outpatient (CLI) | payer MEDICARE ==
[~2020-10-14] MED LIST changes: +MAG400TA PO; -MAGN400T35 PO
--- NOTE | 2020-10-14 10:47 | REP ---
INDICATION: DECLAN CAROTID STENOSIS COMPARISON: 05/03/2019. TECHNIQUE: Real-time ultrasound evaluation and duplex Doppler interrogation of the extracranial carotid vasculature is performed. FINDINGS: Once again there is occlusion of the right internal carotid artery. Moderate plaquing is noted in the left carotid bulb extending into the internal and external carotid arteries. There is elevated peak systolic velocity in left internal carotid artery compatible with stenosis 60-79%. The vertebral arteries demonstrate normal direction of flow. RIGHT LEFT Peak systolic velocity ICA occluded cm/s 199.0 cm/s End diastolic velocity ICA occluded cm/s 24.7 cm/s Peak systolic velocity CCA 73.5 cm/s 4105.5cm/s Peak systolic velocity ECA 173.2 cm/s 225.2 cm/s ICA/CCA ratio - 1.9 IMPRESSION: Occlusion right internal carotid artery. Elevated peak systolic velocity left internal carotid artery compatible with stenosis 60-79%. <Electronically signed by Jevon Figueroa > 10/14/20 [id number]
== END ==
LOC: M RAD 09:21
PROVIDERS: ATTEND Surgery Vascular Surgery
DX: I65.23 Occlusion and stenosis of bilateral carotid arteries (principal)

== ENCOUNTER → 2020-10-16 | Outpatient (REF) | payer MEDICARE ==
[~2020-10-16] MED LIST changes: -MAG400TA PO; +MAGN400T35 PO
== END ==
PROVIDERS: ATTEND Internal Medicine
DX: Z20.828 Contact with and (suspected) exposure to other viral communicable diseases (principal)

== ENCOUNTER → 2020-11-03 | Outpatient (REF) | payer MEDICARE ==
[~2020-11-03] MED LIST changes: +MAG400TA PO; -MAGN400T35 PO
== END ==
PROVIDERS: ATTEND Internal Medicine
DX: Z20.828 Contact with and (suspected) exposure to other viral communicable diseases (principal)

== ENCOUNTER → 2020-11-03 | Outpatient (REF) | payer MEDICARE | PROVIDERS: ATTEND Internal Medicine | DX: Z20.828 Contact with and (suspected) exposure to other viral communicable diseases (principal) ==

== ENCOUNTER → 2020-11-05 | Outpatient (REF) | payer MEDICARE ==
[2020-11-05 11:26] LABS: HEMATOCRIT 32.5 % (42.0-52.0); HEMOGLOBIN 10.2 g/dl (13.5-17.5); MEAN CORPUSCULAR HEMOGLOBIN 30.6 pg (27.0-33.0); MEAN CORPUSCULAR HGB CONC 31.4 g/dl (32.0-36.5); MEAN CORPUSCULAR VOLUME 97.6 fl (80.0-96.0); PLATELET COUNT, AUTOMATED 152 10^3/uL (150-450); RED BLOOD COUNT 3.33 10^6/uL (4.30-6.10); WHITE BLOOD COUNT 5.6 10^3/uL (4.0-10.0)
[2020-11-05 11:47] LABS: CALCIUM LEVEL 9.2 MG/DL (8.8-10.2); CREATININE FOR GFR 1.82 MG/DL (0.70-1.30)
== END ==
PROVIDERS: ATTEND Internal Medicine
DX: Z79.899 Other long term (current) drug therapy (principal)

== ENCOUNTER 2020-11-06 16:52 | Emergency (ER) | payer MEDICARE ==
[~2020-11-06] VITALS: Ht 167.6 cm; Wt 67.7 kg
[2020-11-06] MEDS ORDERED: ACETAMINOPHEN 500 MG TAB PO ONE (17:30)
--- NOTE | 2020-11-06 17:56 | REPVR ---
PROCEDURE INFORMATION: Exam: CT Cervical Spine Without Contrast Exam date and time: 11/06/2020 5:31 PM Age: 85 years old Clinical indication: Injury or trauma; Fall; Blunt trauma; Additional info: Fall, head lac TECHNIQUE: Imaging protocol: Computed tomography images of the cervical spine without contrast. Radiation optimization: All CT scans at this facility use at least one of these dose optimization techniques: automated exposure control; mA and/or kV adjustment per patient size (includes targeted exams where dose is matched to clinical indication); or iterative reconstruction. COMPARISON: CT Spine,cervical w/o contrast 04/15/2020 11:50 PM FINDINGS: Bones/joints: No acute fracture. Normal alignment. Discs/Spinal canal/Neural foramina: Severe degenerative changes of the cervical spine are present. There is no severe spinal canal stenosis. Multilevel neural foraminal narrowing from uncinate spurring and facet arthropathy is noted. Lungs: Lung apices are normal. Vasculature: Extensive vascular calcifications are present. Soft tissues: Unremarkable. IMPRESSION: 1. No acute abnormality. 2. Chronic findings as discussed above. Electronically signed by: Marek Diaz On 11/06/2020 17:55:31 PM
--- NOTE | 2020-11-06 17:57 | REPVR ---
PROCEDURE INFORMATION: Exam: CT Head Without Contrast Exam date and time: 11/06/2020 5:31 PM Age: 85 years old Clinical indication: Injury or trauma; Fall; Blunt trauma (contusions or hematomas); Additional info: Fall, head lac TECHNIQUE: Imaging protocol: Computed tomography of the head without contrast. Radiation optimization: All CT scans at this facility use at least one of these dose optimization techniques: automated exposure control; mA and/or kV adjustment per patient size (includes targeted exams where dose is matched to clinical indication); or iterative reconstruction. COMPARISON: CT Head without contrast 04/15/2020 11:50 PM FINDINGS: Brain: There is no acute intracranial hemorrhage, cerebral edema, or midline shift. Chronic microvascular ischemic changes are seen in the periventricular white matter. Age-related cerebral and cerebellar volume loss is present. Cerebral ventricles: Mild ex vacuo dilation of the lateral and third ventricles is noted. Bones/joints: No acute fracture. Paranasal sinuses: There is no acute sinusitis. Mastoid air cells: The mastoid air cells are clear. Orbital cavity: The included orbital structures are unremarkable. Vasculature: Atherosclerotic calcifications are seen involving the cavernous carotid arteries. Soft tissues: A left frontal scalp laceration appears to be present. IMPRESSION: 1. No acute intracranial abnormality. 2. Atrophy and chronic deep white matter ischemic changes. Electronically signed by: Marek Diaz On 11/06/2020 17:57:16 PM
[2020-11-06 19:11] VITALS: BP 143/65
== END 2020-11-06 19:14 | disposition home or self-care (01) ==
LOC: EDBD 16:52 → M ED 16:52
DX: S01.01XA Laceration without foreign body of scalp, initial encounter (principal); W18.39XA Other fall on same level, initial encounter; Y92.018 Other place in single-family (private) house as the place of occurrence of the external cause; I10 Essential (primary) hypertension; E78.5 Hyperlipidemia, unspecified; R56.9 Unspecified convulsions; Z79.899 Other long term (current) drug therapy; Z79.82 Long term (current) use of aspirin; Z88.7 Allergy status to serum and vaccine

== ENCOUNTER → 2020-11-07 | Outpatient (REF) | payer MEDICARE ==
[~2020-11-07] MED LIST changes: -MAG400TA PO; +MAGN400T35 PO
== END ==
PROVIDERS: ATTEND Internal Medicine
DX: Z20.828 Contact with and (suspected) exposure to other viral communicable diseases (principal)

== ENCOUNTER → 2020-11-13 | Outpatient (REF) | payer MEDICARE | PROVIDERS: ATTEND Internal Medicine | DX: Z20.828 Contact with and (suspected) exposure to other viral communicable diseases (principal) ==

== ENCOUNTER → 2020-11-19 | Outpatient (REF) | payer MEDICARE | PROVIDERS: ATTEND Internal Medicine | DX: Z20.828 Contact with and (suspected) exposure to other viral communicable diseases (principal) ==

== ENCOUNTER → 2020-11-25 | Outpatient (REF) | payer MEDICARE | PROVIDERS: ATTEND Internal Medicine | DX: Z20.828 Contact with and (suspected) exposure to other viral communicable diseases (principal) ==

== ENCOUNTER → 2020-11-29 | Outpatient (REF) | payer MEDICARE | PROVIDERS: ATTEND Internal Medicine | DX: Z20.828 Contact with and (suspected) exposure to other viral communicable diseases (principal) ==

== ENCOUNTER → 2020-12-04 | Outpatient (REF) | payer MEDICARE | PROVIDERS: ATTEND Internal Medicine | DX: Z20.828 Contact with and (suspected) exposure to other viral communicable diseases (principal) ==

== ENCOUNTER → 2020-12-09 | Outpatient (REF) | payer MEDICARE ==
[2020-12-09 12:06] LABS: HEMATOCRIT 32.2 % (42.0-52.0); HEMOGLOBIN 10.4 g/dl (13.5-17.5); MEAN CORPUSCULAR HEMOGLOBIN 31.7 pg (27.0-33.0); MEAN CORPUSCULAR HGB CONC 32.3 g/dl (32.0-36.5); MEAN CORPUSCULAR VOLUME 98.2 fl (80.0-96.0); PLATELET COUNT, AUTOMATED 142 10^3/uL (150-450); RED BLOOD COUNT 3.28 10^6/uL (4.30-6.10); WHITE BLOOD COUNT 6.1 10^3/uL (4.0-10.0)
[2020-12-09 13:10] LABS: CALCIUM LEVEL 9.8 MG/DL (8.8-10.2); CREATININE FOR GFR 1.56 MG/DL (0.70-1.30); GLOMERULAR FILTRATION RATE 45.4 (>35)
== END ==
PROVIDERS: ATTEND Physician Assistant
DX: N18.9 Chronic kidney disease, unspecified (principal)

== ENCOUNTER → 2020-12-11 | Outpatient (REF) | payer MEDICARE | PROVIDERS: ATTEND Internal Medicine | DX: Z11.52 Encounter for screening for COVID-19 (principal) ==

== ENCOUNTER → 2020-12-18 | Outpatient (REF) | payer MEDICARE ==
[~2020-12-18] MED LIST changes: +MAG400TA PO; -MAGN400T35 PO
== END ==
PROVIDERS: ATTEND Internal Medicine
DX: Z20.822 Contact with and (suspected) exposure to COVID-19 (principal)

== ENCOUNTER → 2020-12-25 | Outpatient (REF) | payer MEDICARE ==
[~2020-12-25] MED LIST changes: -MAG400TA PO; +MAGN400T35 PO
== END ==
PROVIDERS: ATTEND Internal Medicine
DX: Z20.822 Contact with and (suspected) exposure to COVID-19 (principal)

== ENCOUNTER → 2021-01-01 | Outpatient (REF) | payer MEDICARE ==
[2021-01-01 13:47] LABS: HEMATOCRIT 36.5 % (42.0-52.0); HEMOGLOBIN 11.2 g/dl (13.5-17.5); MEAN CORPUSCULAR HGB CONC 30.7 g/dl (32.0-36.5); MEAN CORPUSCULAR VOLUME 101.1 fl (80.0-96.0); PLATELET COUNT, AUTOMATED 143 10^3/uL (150-450); RED BLOOD COUNT 3.61 10^6/uL (4.30-6.10); WHITE BLOOD COUNT 5.4 10^3/uL (4.0-10.0)
[2021-01-01 14:13] LABS: CREATININE FOR GFR 1.7 MG/DL (0.70-1.30); GLOMERULAR FILTRATION RATE 41.1 (>35); POTASSIUM SERUM 4.5 MEQ/L (3.5-5.1)
== END ==
PROVIDERS: ATTEND Internal Medicine
DX: E86.0 Dehydration (principal); Z20.822 Contact with and (suspected) exposure to COVID-19
CPT/HCPCS: 80048; 85027; U0003

== ENCOUNTER → 2021-01-07 | Outpatient (REF) | payer MEDICARE ==
[2021-01-07 11:27] LABS: HEMOGLOBIN 10.5 g/dl (13.5-17.5); MEAN CORPUSCULAR HEMOGLOBIN 31.3 pg (27.0-33.0); MEAN CORPUSCULAR HGB CONC 31.8 g/dl (32.0-36.5); MEAN CORPUSCULAR VOLUME 98.5 fl (80.0-96.0); PLATELET COUNT, AUTOMATED 140 10^3/uL (150-450); RED BLOOD COUNT 3.35 10^6/uL (4.30-6.10); WHITE BLOOD COUNT 6.5 10^3/uL (4.0-10.0)
[2021-01-07 12:01] LABS: CALCIUM LEVEL 9.3 MG/DL (8.8-10.2); CREATININE FOR GFR 1.77 MG/DL (0.70-1.30); GLOMERULAR FILTRATION RATE 39.2 (>35); POTASSIUM SERUM 4.3 MEQ/L (3.5-5.1)
== END ==
PROVIDERS: ATTEND Internal Medicine
DX: K92.2 Gastrointestinal hemorrhage, unspecified (principal)

== ENCOUNTER → 2021-01-08 | Outpatient (REF) | payer MEDICARE | PROVIDERS: ATTEND Internal Medicine | DX: Z20.822 Contact with and (suspected) exposure to COVID-19 (principal) ==

== ENCOUNTER → 2021-01-09 | Outpatient (REF) | payer MEDICARE | PROVIDERS: ATTEND Internal Medicine | DX: R11.10 Vomiting, unspecified (principal) ==

== ENCOUNTER → 2021-01-09 | Outpatient (REF) | payer MEDICARE ==
[2021-01-09 15:48] LABS: HEMATOCRIT 34.3 % (42.0-52.0); HEMOGLOBIN 10.9 g/dl (13.5-17.5); MEAN CORPUSCULAR HEMOGLOBIN 31.1 pg (27.0-33.0); MEAN CORPUSCULAR HGB CONC 31.8 g/dl (32.0-36.5); MEAN CORPUSCULAR VOLUME 97.7 fl (80.0-96.0); PLATELET COUNT, AUTOMATED 133 10^3/uL (150-450); RED BLOOD COUNT 3.51 10^6/uL (4.30-6.10); WHITE BLOOD COUNT 5.5 10^3/uL (4.0-10.0)
[2021-01-09 16:09] LABS: CALCIUM LEVEL 9.3 MG/DL (8.8-10.2); CREATININE FOR GFR 1.7 MG/DL (0.70-1.30); GLOMERULAR FILTRATION RATE 41.1 (>35); POTASSIUM SERUM 4.5 MEQ/L (3.5-5.1)
== END ==
PROVIDERS: ATTEND Internal Medicine
DX: R11.10 Vomiting, unspecified (principal)

== ENCOUNTER → 2021-01-10 | Outpatient (REF) | payer MEDICARE ==
[2021-01-10 09:06] LABS: HEMATOCRIT 34.4 % (42.0-52.0); HEMOGLOBIN 10.9 g/dl (13.5-17.5); MEAN CORPUSCULAR HEMOGLOBIN 31.3 pg (27.0-33.0); MEAN CORPUSCULAR HGB CONC 31.7 g/dl (32.0-36.5); MEAN CORPUSCULAR VOLUME 98.9 fl (80.0-96.0); PLATELET COUNT, AUTOMATED 143 10^3/uL (150-450); RED BLOOD COUNT 3.48 10^6/uL (4.30-6.10); WHITE BLOOD COUNT 6.8 10^3/uL (4.0-10.0)
[2021-01-10 09:30] LABS: CALCIUM LEVEL 9.1 MG/DL (8.8-10.2); CREATININE FOR GFR 1.72 MG/DL (0.70-1.30); GLOMERULAR FILTRATION RATE 40.5 (>35); POTASSIUM SERUM 4.2 MEQ/L (3.5-5.1)
== END ==
PROVIDERS: ATTEND Internal Medicine
DX: R11.10 Vomiting, unspecified (principal)

== ENCOUNTER → 2021-01-12 | Outpatient (REF) | payer MEDICARE ==
[2021-01-12 22:48] LABS: INFLUENZA A AMPLIFICATION NEGATIVE (NEGATIVE); INFLUENZA B AMPLIFICATION NEGATIVE (NEGATIVE)
== END ==
PROVIDERS: ATTEND Internal Medicine
DX: R11.10 Vomiting, unspecified (principal)

== ENCOUNTER → 2021-01-13 | Outpatient (REF) | payer MEDICARE ==
[2021-01-13 11:59] LABS: HEMATOCRIT 33.9 % (42.0-52.0); HEMOGLOBIN 10.8 g/dl (13.5-17.5); MEAN CORPUSCULAR HEMOGLOBIN 31.3 pg (27.0-33.0); MEAN CORPUSCULAR HGB CONC 31.9 g/dl (32.0-36.5); MEAN CORPUSCULAR VOLUME 98.3 fl (80.0-96.0); PLATELET COUNT, AUTOMATED 144 10^3/uL (150-450); RED BLOOD COUNT 3.45 10^6/uL (4.30-6.10); WHITE BLOOD COUNT 6.2 10^3/uL (4.0-10.0)
[2021-01-13 12:34] LABS: CALCIUM LEVEL 9.2 MG/DL (8.8-10.2); CREATININE FOR GFR 1.48 MG/DL (0.70-1.30); GLOMERULAR FILTRATION RATE 48.2 (>35); POTASSIUM SERUM 4.8 MEQ/L (3.5-5.1)
== END ==
PROVIDERS: ATTEND Internal Medicine
DX: R11.10 Vomiting, unspecified (principal)

== ENCOUNTER → 2021-01-15 | Outpatient (REF) | payer MEDICARE | PROVIDERS: ATTEND Internal Medicine | DX: Z20.822 Contact with and (suspected) exposure to COVID-19 (principal) ==

== ENCOUNTER → 2021-01-22 | Outpatient (REF) | payer MEDICARE | PROVIDERS: ATTEND Internal Medicine | DX: Z20.822 Contact with and (suspected) exposure to COVID-19 (principal) ==

== ENCOUNTER → 2021-01-29 | Outpatient (REF) | payer MEDICARE | PROVIDERS: ATTEND Internal Medicine | DX: Z11.52 Encounter for screening for COVID-19 (principal) ==

== ENCOUNTER → 2021-02-04 | Outpatient (REF) | payer MEDICARE ==
[2021-02-04 10:18] LABS: HEMATOCRIT 32.6 % (42.0-52.0); HEMOGLOBIN 10.7 g/dl (13.5-17.5); MEAN CORPUSCULAR HEMOGLOBIN 32.2 pg (27.0-33.0); MEAN CORPUSCULAR HGB CONC 32.8 g/dl (32.0-36.5); MEAN CORPUSCULAR VOLUME 98.2 fl (80.0-96.0); PLATELET COUNT, AUTOMATED 126 10^3/uL (150-450); RED BLOOD COUNT 3.32 10^6/uL (4.30-6.10); WHITE BLOOD COUNT 6.3 10^3/uL (4.0-10.0)
[2021-02-04 10:36] LABS: CALCIUM LEVEL 9.2 MG/DL (8.8-10.2); CREATININE FOR GFR 1.6 MG/DL (0.70-1.30); GLOMERULAR FILTRATION RATE 44.1 (>35)
== END ==
PROVIDERS: ATTEND Internal Medicine
DX: Z01.89 Encounter for other specified special examinations (principal)

== ENCOUNTER → 2021-02-21 | Outpatient (REF) | payer MEDICARE ==
[2021-02-21 20:15] LABS: INFLUENZA A AMPLIFICATION NEGATIVE (NEGATIVE); INFLUENZA B AMPLIFICATION NEGATIVE (NEGATIVE)
== END ==
PROVIDERS: ATTEND Internal Medicine
DX: Z11.59 Encounter for screening for other viral diseases (principal)

== ENCOUNTER → 2021-03-04 | Outpatient (REF) | payer MEDICARE | PROVIDERS: ATTEND Internal Medicine | DX: Z20.822 Contact with and (suspected) exposure to COVID-19 (principal) ==

== ENCOUNTER → 2021-03-11 | Outpatient (REF) | payer MEDICARE ==
[2021-03-11 11:56] LABS: HEMATOCRIT 33.5 % (42.0-52.0); MEAN CORPUSCULAR HEMOGLOBIN 32.3 pg (27.0-33.0); MEAN CORPUSCULAR HGB CONC 32.8 g/dl (32.0-36.5); MEAN CORPUSCULAR VOLUME 98.2 fl (80.0-96.0); PLATELET COUNT, AUTOMATED 124 10^3/uL (150-450); RED BLOOD COUNT 3.41 10^6/uL (4.30-6.10); WHITE BLOOD COUNT 5.6 10^3/uL (4.0-10.0)
[2021-03-11 12:21] LABS: CALCIUM LEVEL 8.9 MG/DL (8.8-10.2); CREATININE FOR GFR 1.54 MG/DL (0.70-1.30); POTASSIUM SERUM 4.5 MEQ/L (3.5-5.1)
== END ==
PROVIDERS: ATTEND Internal Medicine
DX: N18.9 Chronic kidney disease, unspecified (principal); Z20.822 Contact with and (suspected) exposure to COVID-19
CPT/HCPCS: 36415; 80048; 85027; U0003

== ENCOUNTER → 2021-04-09 | Outpatient (REF) | payer MEDICARE ==
[2021-04-09 11:07] LABS: HEMATOCRIT 34.6 % (42.0-52.0); MEAN CORPUSCULAR HEMOGLOBIN 31.5 pg (27.0-33.0); MEAN CORPUSCULAR HGB CONC 31.8 g/dl (32.0-36.5); MEAN CORPUSCULAR VOLUME 99.1 fl (80.0-96.0); PLATELET COUNT, AUTOMATED 138 10^3/uL (150-450); RED BLOOD COUNT 3.49 10^6/uL (4.30-6.10); WHITE BLOOD COUNT 5.9 10^3/uL (4.0-10.0)
[2021-04-09 11:36] LABS: CALCIUM LEVEL 8.6 MG/DL (8.8-10.2); CREATININE FOR GFR 1.55 MG/DL (0.70-1.30); GLOMERULAR FILTRATION RATE 45.7 (>35); POTASSIUM SERUM 4.3 MEQ/L (3.5-5.1)
== END ==
PROVIDERS: ATTEND Internal Medicine
DX: Z13.89 Encounter for screening for other disorder (principal); Z79.899 Other long term (current) drug therapy

== ENCOUNTER → 2021-06-02 | Outpatient (REF) | payer MEDICARE ==
[~2021-06-02] MED LIST changes: -LATU80TA PO; +LATU80TA2 PO
[2021-06-02 10:41] LABS: HEMOGLOBIN 11.3 g/dl (13.5-17.5); MEAN CORPUSCULAR HEMOGLOBIN 31.3 pg (27.0-33.0); MEAN CORPUSCULAR HGB CONC 32.3 g/dl (32.0-36.5); PLATELET COUNT, AUTOMATED 121 10^3/uL (150-450); RED BLOOD COUNT 3.61 10^6/uL (4.30-6.10); WHITE BLOOD COUNT 6.2 10^3/uL (4.0-10.0)
[2021-06-02 11:06] LABS: CALCIUM LEVEL 9.3 MG/DL (8.8-10.2); CREATININE FOR GFR 1.6 MG/DL (0.70-1.30); GLOMERULAR FILTRATION RATE 44.1 (>35); POTASSIUM SERUM 4.1 MEQ/L (3.5-5.1)
== END ==
PROVIDERS: ATTEND Internal Medicine
DX: Z13.89 Encounter for screening for other disorder (principal); Z79.899 Other long term (current) drug therapy

== ENCOUNTER → 2021-06-13 | Outpatient (CLI) | payer MEDICARE, MEDICAID ==
[~2021-06-13] MED LIST changes: +LATU80TA PO; -LATU80TA2 PO
--- NOTE | 2021-06-13 12:58 | REP ---
INDICATION: OCCLUSION AND STENOSIS COMPARISON: Comparison study October 14, 2020.. TECHNIQUE: Real-time ultrasound evaluation and duplex Doppler interrogation of the extracranial carotid vasculature is performed. FINDINGS: Antegrade flow is observed in both vertebral arteries. Right carotid: Two-dimensional scanning demonstrates a extensive mixed plaquing in the common carotid artery and proximal external carotid artery on the right side. The right internal carotid artery is again noted to be occluded.. Velocity chart right carotid: Right CCA PSV: 77 cm/S Right ICA PSV: 0 cm/S Right ICA EDV: 0 cm/S Right ECA PSV: 234 cm/S Right ICA/CCA ratio: 0 Left carotid: Extensive mixed plaquing is again noted in the common carotid, internal carotid and external carotid artery on the left side. Significant narrowing is seen in the proximal CCA. ICA and ECA velocities may be falsely decreased as result.. Velocity chart left carotid: Left CCA PSV: 120 cm/S Left ICA PSV: 189 cm/S Left ICA EDV: 26 cm/S Left ECA PSV: 173 cm/S Left ICA/CCA ratio: 1.6 IMPRESSION: The right ICA is again noted to be occluded. Extensive calcific and soft plaquing are seen in the CCA and ECA on the right side. 50-69% category narrowing in the ICA on the left. Significant luminal narrowing is seen in the distal CCA on the left as well. <Electronically signed by Rickey Salas > 06/13/21 [id number]
== END ==
LOC: M RAD 11:08
PROVIDERS: ATTEND Surgery Vascular Surgery
DX: I65.23 Occlusion and stenosis of bilateral carotid arteries (principal)

== ENCOUNTER → 2021-07-09 | Outpatient (REF) | payer MEDICARE, MEDICAID ==
[2021-07-09 10:39] LABS: HEMATOCRIT 35.2 % (42.0-52.0); HEMOGLOBIN 11.4 g/dl (13.5-17.5); MEAN CORPUSCULAR HEMOGLOBIN 31.1 pg (27.0-33.0); MEAN CORPUSCULAR HGB CONC 32.4 g/dl (32.0-36.5); MEAN CORPUSCULAR VOLUME 96.2 fl (80.0-96.0); PLATELET COUNT, AUTOMATED 132 10^3/uL (150-450); RED BLOOD COUNT 3.66 10^6/uL (4.30-6.10); WHITE BLOOD COUNT 6.4 10^3/uL (4.0-10.0)
[2021-07-09 11:14] LABS: CALCIUM LEVEL 8.6 MG/DL (8.8-10.2); CREATININE FOR GFR 1.55 MG/DL (0.70-1.30); GLOMERULAR FILTRATION RATE 45.7 (>35); POTASSIUM SERUM 3.9 MEQ/L (3.5-5.1)
== END ==
PROVIDERS: ATTEND Internal Medicine
DX: I50.9 Heart failure, unspecified (principal)

== ENCOUNTER → 2022-07-21 | Outpatient (CLI) | payer MEDICARE ==
[~2022-07-21] MED LIST changes: -LATU80TA PO; +LATU80TA2 PO
== END ==
LOC: M RAD 12:30
PROVIDERS: ATTEND Surgery Vascular Surgery
DX: I65.29 Occlusion and stenosis of unspecified carotid artery (principal)

== ENCOUNTER 2022-09-07 11:40 | Inpatient (IN) | payer MEDICARE, MEDICAID ==
[~2022-09-07] VITALS: Ht 170.2 cm; Wt 69.6 kg
[~2022-09-07 11:40] MED LIST changes: -LATA0.0015 OP; +LATA0.0015 OU
[2022-09-07] MEDS ORDERED: LIDOCAINE 2% 5ML JELLY UROJET TOP ONE (13:20)
[2022-09-07 13:54] LABS: HEMATOCRIT 33.6 % (42.0-52.0); HEMOGLOBIN 10.9 g/dl (13.5-17.5); LYMPH # 0.8 10^3/uL (1.5-5.0); LYMPH % 7.9 % (24.0-44.0); MEAN CORPUSCULAR HGB CONC 32.4 g/dl (32.0-36.5); MEAN CORPUSCULAR VOLUME 95.5 fl (80.0-96.0); MONO % 10.5 % (2.0-8.0); NEUTROPHILS # 7.8 10^3/uL (1.5-8.5); NEUTROPHILS % 81.1 % (36.0-66.0); PLATELET COUNT, AUTOMATED 194 10^3/uL (150-450); RED BLOOD COUNT 3.52 10^6/uL (4.30-6.10); WHITE BLOOD COUNT 9.6 10^3/uL (4.0-10.0)
[2022-09-07 14:02] LABS: INR 1.3; PROTHROMBIN TIME 16.4 SECONDS (12.5-14.5)
[2022-09-07 14:03] LABS: PARTIAL THROMBOPLASTIN TIME 29.3 SECONDS (24.8-34.2)
[2022-09-07 14:47] LABS: ALBUMIN 2.8 GM/DL (3.2-5.2); BILIRUBIN,DIRECT 0.5 MG/DL (0.0-0.2); BILIRUBIN,TOTAL 0.9 MG/DL (0.2-1.0); CREATININE FOR GFR 1.93 MG/DL (0.70-1.30); GLOMERULAR FILTRATION RATE 35.4 (>35); POTASSIUM SERUM 3.6 MEQ/L (3.5-5.1); THYROID STIMULATING HORMONE 0.698 uIU/ML (0.358-3.740); TOTAL PROTEIN 7.1 GM/DL (6.4-8.2)
[2022-09-07 18:19] LABS: RSV AMPLIFICATION NEGATIVE (NEGATIVE)
[2022-09-07 18:31] LABS: CPK CREATINE PHOSPHOKINASE 59 U/L (39-308)
[2022-09-07 19:37] LABS: CPK CREATINE PHOSPHOKINASE 51 U/L (39-308)
[2022-09-07] MEDS ORDERED: FURO20TA2 PO (20:33)
[2022-09-07] MEDS ORDERED: ATEN25TA PO (20:33)
[2022-09-07] MEDS ORDERED: POTA595T16 PO (20:33)
[2022-09-07] MEDS ORDERED: VITMTA PO (20:33)
[2022-09-07] MEDS ORDERED: XALA0.007 OU (20:37)
[2022-09-07] MEDS ORDERED: HOME MED LIST COMPLETE! XX SCH (20:40)
[2022-09-07] MEDS: LATANOPROST 0.005% OPHTH SOLN 2.5 ML OU SCH (21:00)
[2022-09-07] MEDS ORDERED: LURASIDONE HCL 40MG TAB (LATUDA) PO SCH (21:00)
[2022-09-07 23:25] VITALS: BP 171/72
[2022-09-08] MEDS ORDERED: NS 500 ML IV ONE (01:25)
[2022-09-08] MEDS ORDERED: NS 1,000 ML IV SCH (01:25)
[2022-09-08] MEDS ORDERED: ALBUTEROL SULFATE 2.5 MG/0.5 ML INH NEB SOLN INH PRN (01:25)
[2022-09-08] MEDS: IPRATROPIUM 0.5MG/ALBUTEROL 2.5MG INH SOL UD 3ML (DUONEB) INH SCH ×4 (02:00→20:00)
[2022-09-08] MEDS: cefTRIAXone SOD 1 GM in D5W MINI-BAG PLUS 50 ML IV SCH (02:24)
[2022-09-08] MEDS: DOXYCYCLINE HYCLATE 100 MG in D5W MINI-BAG PLUS 100 ML IV SCH ×2 (03:03→18:25)
[2022-09-08 03:45] VITALS: BP 148/67
[2022-09-08 08:00] VITALS: BP 134/80
[2022-09-08] MEDS ORDERED: ROSUVASTATIN 10 MG TAB (CRESTOR) PO SCH (09:00)
[2022-09-08] MEDS: atenoloL 25 MG TAB PO SCH (09:00)
[2022-09-08] MEDS ORDERED: allopurinoL 100 MG TAB PO SCH (09:00)
[2022-09-08] MEDS ORDERED: SERTRALINE 100 MG TAB PO SCH (09:00)
[2022-09-08 11:06] LABS: BASO % 0.1 % (0.0-1.0); HEMATOCRIT 32.8 % (42.0-52.0); HEMOGLOBIN 10.2 g/dl (13.5-17.5); LYMPH # 0.9 10^3/uL (1.5-5.0); LYMPH % 9.1 % (24.0-44.0); MEAN CORPUSCULAR HEMOGLOBIN 30.4 pg (27.0-33.0); MEAN CORPUSCULAR HGB CONC 31.1 g/dl (32.0-36.5); MEAN CORPUSCULAR VOLUME 97.6 fl (80.0-96.0); MONO # 1.1 10^3/uL (0.0-0.8); NEUTROPHILS # 7.6 10^3/uL (1.5-8.5); NEUTROPHILS % 79.1 % (36.0-66.0); PLATELET COUNT, AUTOMATED 178 10^3/uL (150-450); RED BLOOD COUNT 3.36 10^6/uL (4.30-6.10); WHITE BLOOD COUNT 9.6 10^3/uL (4.0-10.0)
[2022-09-08 11:58] LABS: ALBUMIN 2.6 GM/DL (3.2-5.2); BILIRUBIN,TOTAL 0.7 MG/DL (0.2-1.0); CALCIUM LEVEL 8.2 MG/DL (8.8-10.2); CREATININE FOR GFR 1.69 MG/DL (0.70-1.30); GLOMERULAR FILTRATION RATE 41.3 (>35); MAGNESIUM LEVEL 2.4 MG/DL (1.8-2.4); POTASSIUM SERUM 3.4 MEQ/L (3.5-5.1); TOTAL PROTEIN 6.3 GM/DL (6.4-8.2)
[2022-09-08 12:00] VITALS: BP 154/70
[2022-09-08 15:09] LABS: SOURCE, BODY FLUID pH PLEURAL
[2022-09-08 15:23] LABS: APPEARANCE, BODY FLUID HAZY (CLEAR); PLEURAL FL COLOR YELLOW (COLORLESS); SOURCE, BODY FLUID PLEURAL
[2022-09-08 16:00] VITALS: BP 120/58
[2022-09-08] MEDS ORDERED: POTASSIUM CHLORIDE 10MEQ SR TABLET PO ONE (16:00)
[2022-09-08 16:09] LABS: AMYLASE, BODY FLUID 11 U/L (NOT ESTABLISHED); CHOLESTEROL, BODY FLUID < 50 MG/DL (NOT ESTABLISHED); LDH, BODY FLUID 80 U/L (NOT ESTABLISHED); SOURCE, BODY FLUID AMYLASE PLEURAL; SOURCE, BODY FLUID CHOL PLEURAL; SOURCE, BODY FLUID GLUCOSE PLEURAL; SOURCE, BODY FLUID LDH PLEURAL; SOURCE, BODY FLUID TRIG PLEURAL; TRIGLYCERIDE, BODY FLUID 14 MG/DL (NOT ESTABLISHED)
[2022-09-08 16:10] LABS: SOURCE, BODY FLUID ALBUMIN PLEURAL; SOURCE, BODY FLUID TOT PROTEIN PLEURAL; TOTAL PROTEIN, BODY FLUID 2.9 G/DL (NOT ESTABLISHED)
[2022-09-08] MEDS ORDERED: ASPIRIN 81 MG CHEW TABLET PO ONE (16:10)
[2022-09-08] MEDS ORDERED: KCL 10MEQ/100ML SWI (KRUN) 10 MEQ in IV 1 EA IV SCH (17:00)
[2022-09-08 17:20] LABS: ABG BASE EXCESS -4.5 (-2.0-2.0); ABG HCO3 19.3 MEQ/L (22.0-26.0); ABG PARTIAL PRESSURE CO2 31.5 mmHg (35.0-45.0); ABG PARTIAL PRESSURE O2 50.4 mmHg (75.0-100.0); ABG STANDARD HCO3 20.5 MEQ/L (22.0-26.0); ABG TOTAL CO2 20.3 MEQ/L (23.0-31.0); ABG pH (ARTERIAL) 7.405 UNITS (7.350-7.450)
[2022-09-08 17:43] LABS: CHOLESTEROL RISK RATIO 2.457 (<5)
[2022-09-08] MEDS ORDERED: HEPARIN SOD (PORCINE) 5000UNITS/ML 1ML VIAL/SYRINGE SC SCH (18:00)
[2022-09-08] MEDS ORDERED: FUROSEMIDE 40MG/4ML VIAL (J1940) IV ONE (19:15)
[2022-09-08 20:00] VITALS: O2SAT 93
[2022-09-08 20:44] VITALS: BP 130/88
[2022-09-08] MEDS: LATANOPROST 0.005% OPHTH SOLN 2.5 ML OU SCH (20:45)
[2022-09-08] MEDS ORDERED: ATORVASTATIN 20 MG TAB PO SCH (21:00)
[2022-09-08] MEDS: ASPIRIN 300 MG SUPP PR SCH (21:14)
[2022-09-09] VITALS (13 sets, daily range): BP systolic 138–155; BP diastolic 64–79; O2SAT 91–96
[2022-09-09] MEDS: cefTRIAXone SOD 1 GM in D5W MINI-BAG PLUS 50 ML IV SCH (02:17)
[2022-09-09] MEDS: DOXYCYCLINE HYCLATE 100 MG in D5W MINI-BAG PLUS 100 ML IV SCH ×2 (02:20→14:58)
[2022-09-09] MEDS: IPRATROPIUM 0.5MG/ALBUTEROL 2.5MG INH SOL UD 3ML (DUONEB) INH SCH ×4 (02:37→20:36)
[2022-09-09 06:49] LABS: HEMOGLOBIN 10.6 g/dl (13.5-17.5); LYMPH # 1.1 10^3/uL (1.5-5.0); LYMPH % 12.7 % (24.0-44.0); MEAN CORPUSCULAR HEMOGLOBIN 31.5 pg (27.0-33.0); MEAN CORPUSCULAR HGB CONC 33.1 g/dl (32.0-36.5); MONO # 0.9 10^3/uL (0.0-0.8); MONO % 10.3 % (2.0-8.0); NEUTROPHILS # 6.7 10^3/uL (1.5-8.5); NEUTROPHILS % 76.4 % (36.0-66.0); PLATELET COUNT, AUTOMATED 169 10^3/uL (150-450); RED BLOOD COUNT 3.37 10^6/uL (4.30-6.10); WHITE BLOOD COUNT 8.8 10^3/uL (4.0-10.0)
[2022-09-09 07:39] LABS: ALBUMIN 2.2 GM/DL (3.2-5.2); BILIRUBIN,TOTAL 0.6 MG/DL (0.2-1.0); CALCIUM LEVEL 8.1 MG/DL (8.8-10.2); CREATININE FOR GFR 1.62 MG/DL (0.70-1.30); GLOMERULAR FILTRATION RATE 43.3 (>35); MAGNESIUM LEVEL 2.1 MG/DL (1.8-2.4); POTASSIUM SERUM 3.1 MEQ/L (3.5-5.1); TOTAL PROTEIN 5.7 GM/DL (6.4-8.2)
[2022-09-09] MEDS: ASPIRIN 300 MG SUPP PR SCH (08:51)
[2022-09-09] MEDS ORDERED: ASPIRIN 81 MG CHEW TABLET PO SCH (09:00)
[2022-09-09] MEDS: atenoloL 25 MG TAB PO SCH (09:00)
[2022-09-09] MEDS: KCL 10MEQ/100ML SWI (KRUN) 10 MEQ in IV 1 EA IV SCH ×4 (09:40→13:27)
[2022-09-09] MEDS ORDERED: FUROSEMIDE 40MG/4ML VIAL (J1940) IV ONE (11:00)
[2022-09-09 14:51] LABS: CALCIUM LEVEL 8.3 MG/DL (8.8-10.2); CREATININE FOR GFR 1.6 MG/DL (0.70-1.30); POTASSIUM SERUM 3.9 MEQ/L (3.5-5.1)
[2022-09-09] MEDS ORDERED: SCOPOLAMINE 1MG TRANSDERMAL PATCH TOP PRN (16:10)
[2022-09-09] MEDS ORDERED: HYOSCYAMINE SULFATE 0.125 MG SUBL TABLET PO PRN (16:10)
[2022-09-09] MEDS ORDERED: ACETAMINOPHEN 650 MG SUPP PR PRN (16:10)
[2022-09-09] MEDS ORDERED: BISACODYL 10 MG SUPP PR PRN (16:10)
[2022-09-09] MEDS ORDERED: ATROPINE SULFATE 1% OP SOLN 2 ML BTL SL PRN (16:10)
[2022-09-09] MEDS ORDERED: FLEET ENEMA PR PRN (16:10)
[2022-09-10] MEDS: IPRATROPIUM 0.5MG/ALBUTEROL 2.5MG INH SOL UD 3ML (DUONEB) INH SCH ×4 (02:00→20:27)
[2022-09-10] MEDS: MORPHINE 10MG/0.5ML ORAL CONCENTRATE SOLUTION U/D SL PRN (15:55)
[2022-09-11] MEDS: IPRATROPIUM 0.5MG/ALBUTEROL 2.5MG INH SOL UD 3ML (DUONEB) INH SCH ×2 (02:00→08:00)
[2022-09-11] MEDS: MORPHINE 10MG/0.5ML ORAL CONCENTRATE SOLUTION U/D SL PRN ×2 (02:25→11:01)
[2022-09-11] MEDS ORDERED: HYOS125TA PO (08:39)
[2022-09-11] MEDS ORDERED: MORP1SOL5 PO (08:39)
[2022-09-11] MEDS ORDERED: ATIV1TAB10 PO (08:39)
[2022-09-11] MEDS ORDERED: LATU80TA2 PO (11:03)
[2022-09-11] MEDS ORDERED: POTA595T16 PO (11:03)
[2022-09-11] MEDS ORDERED: FURO20TA2 PO (11:03)
== END 2022-09-11 12:38 | disposition hospice, home (50) | DRG 291 ==
LOC: M ED 11:40 → M ED INP 22:30 → ENRESERV 22:50 → M PCU 23:25 → M MSPAV 09-10 01:16
PROVIDERS: ADMIT Internal Medicine; ATTEND Internal Medicine
PROC: B246ZZZ Ultrasonography of Right and Left Heart (ICD-10-PCS; principal; 2022-09-08)
PROC: 0W993ZZ Drainage of Right Pleural Cavity, Percutaneous Approach (ICD-10-PCS; 2022-09-08)
DX: I13.0 Hypertensive heart and chronic kidney disease with heart failure and stage 1 through stage 4 chronic kidney disease, or unspecified chronic kidney disease (principal); I63.541 Cerebral infarction due to unspecified occlusion or stenosis of right cerebellar artery; I50.23 Acute on chronic systolic (congestive) heart failure; G93.41 Metabolic encephalopathy; J18.9 Pneumonia, unspecified organism; J91.8 Pleural effusion in other conditions classified elsewhere; N17.9 Acute kidney failure, unspecified; I24.8 Other forms of acute ischemic heart disease; I48.20 Chronic atrial fibrillation, unspecified; H40.9 Unspecified glaucoma; F20.9 Schizophrenia, unspecified; Z96.653 Presence of artificial knee joint, bilateral; Z87.891 Personal history of nicotine dependence; R74.01 Elevation of levels of liver transaminase levels; N18.30 Chronic kidney disease, stage 3 unspecified; M10.9 Gout, unspecified; Z66 Do not resuscitate; Z79.82 Long term (current) use of aspirin; Z79.899 Other long term (current) drug therapy; Z20.822 Contact with and (suspected) exposure to COVID-19; I77.1 Stricture of artery; M54.9 Dorsalgia, unspecified; E87.6 Hypokalemia; E78.5 Hyperlipidemia, unspecified; Z90.49 Acquired absence of other specified parts of digestive tract; Z98.49 Cataract extraction status, unspecified eye; I27.20 Pulmonary hypertension, unspecified; I08.1 Rheumatic disorders of both mitral and tricuspid valves; D64.9 Anemia, unspecified